=== PATIENT | female | born 1975 | race Caucasian/White ===

== ENCOUNTER 2016-11-24 06:26 | Inpatient (IN) | payer OTHER ==
[~2016-11-24] VITALS: Ht 165.1 cm; Wt 65.3 kg
[2016-11-24 07:20] VITALS: BP 116/73
[2016-11-24] MEDS ORDERED: PREN-134 PO (07:22)
[2016-11-24] MEDS ORDERED: RINGERS SOLUTION,LACTATED 1,000 ML IV ONE (10:11)
[2016-11-24] MEDS ORDERED: METOCLOPRAMIDE HCL 5 MG/ML 2 ML VIAL IVP ONE (10:15)
[2016-11-24] MEDS ORDERED: CITRIC ACID/SODIUM CITRATE 30 ML SOLUTION UDCUP PO ONE (10:15)
[2016-11-24 10:41] LABS: BASOPHILS % (AUTO) 1.2 % (0.0-2.0); EOSINOPHILS % (AUTO) 0.1 % (1.0-6.0); HEMATOCRIT 37.1 % (36-46); HEMOGLOBIN 12.7 g/dL (12.0-16.0); LYMPHOCYTES % (AUTO) 18.9 % (22.0-44.0); MEAN CORPUSCULAR HEMOGLOBIN 29.6 pg (26.0-34.0); MEAN CORPUSCULAR HGB CONC 34.1 G/dL (31.0-37.0); MEAN CORPUSCULAR VOLUME 87 fL (80-100); MONOCYTES # (AUTO) 0.7 K/uL (0.1-1.0); MONOCYTES % (AUTO) 6.3 % (2.0-9.0); NEUTROPHILS # (AUTO) 7.6 K/uL (1.8-7.7); NEUTROPHILS % (AUTO) 73.5 % (40.0-70.0); RED BLOOD CELL COUNT(AUTO) 4.29 MIL/uL (4.00-5.20); RED CELL DISTRIBUTION WIDTH 16.4 % (11.5-14.5); WHITE BLOOD COUNT (AUTO) 10.4 K/uL (4.5-11.0)
[2016-11-24] MEDS ORDERED: CeFAZolin 2 GM/DEXTROSE 50 ML IV ONE (12:11)
[2016-11-24] MEDS ORDERED: MORPHINE SULFATE/PF 1 MG/ML 10 ML AMP ONE (12:12)
[2016-11-24] MEDS ORDERED: FentaNYL CITRATE-PF 100 MCG/2 ML VIAL ONE (12:12)
[2016-11-24] MEDS ORDERED: MEPERIDINE-PF 25 MG/ML SYRINGE IVP PRN (13:30)
[2016-11-24] MEDS ORDERED: PROMETHAZINE HCL 12.5 MG in SODIUM CHLORIDE 0.9% 50 ML IV PRN (13:30)
[2016-11-24] MEDS ORDERED: FentaNYL CITRATE-PF 100 MCG/2 ML VIAL IVP PRN ×4 (13:30)
[2016-11-24] MEDS ORDERED: NALBUPHINE HCL 10 MG/ML VIAL IVP PRN ×3 (13:30)
[2016-11-24] MEDS ORDERED: NALOXONE HCL 0.4 MG/ML VIAL IVP PRN (13:30)
[2016-11-24] MEDS ORDERED: DEXAMETHASONE SOD PHOS 4 MG/ML VIAL IVP PRN (13:30)
[2016-11-24] MEDS ORDERED: ONDANSETRON HCL 4 MG/2 ML VIAL IVP PRN ×2 (13:30)
[2016-11-24] MEDS ORDERED: DiphenhydrAMINE HCL 50 MG/ML VIAL IVP PRN ×2 (13:30)
[2016-11-24] MEDS ORDERED: DEXTROSE 5%-0.45% SODIUM CHL 1,000 ML IV ONE (13:41)
[2016-11-24] MEDS ORDERED: ACETAMINOPHEN/CODEINE 300-30 MG TABLET PO PRN ×2 (13:45)
[2016-11-24] MEDS ORDERED: LANOLIN 7 GM OINTMENT TP PRN (13:45)
[2016-11-24] MEDS: DEXTROSE 5%-0.45% SODIUM CHL 1,000 ML IV SCH ×3 (13:48→22:14)
[2016-11-24] MEDS ORDERED: OXYGEN THERAPY IH SCH ×4 (20:00)
[2016-11-24] MEDS ORDERED: 0.9% SODIUM CHLORIDE 10 ML VIAL IVP ONE (23:52)
[2016-11-24] MEDS ORDERED: ONDANSETRON HCL 4 MG/2 ML VIAL IVP ONE (23:52)
[2016-11-24] MEDS ORDERED: KETOROLAC TROMETHAMINE 60 MG/2 ML VIAL IM ONE (23:52)
[2016-11-24] MEDS ORDERED: PHENYLEPHRINE HCL 10 MG/ML VIAL IVP ONE (23:52)
[2016-11-24] MEDS ORDERED: OXYTOCIN 10 UNITS/ML VIAL IM ONE (23:52)
[2016-11-25] MEDS: DEXTROSE 5%-0.45% SODIUM CHL 1,000 ML IV SCH (02:33)
[2016-11-25] MEDS: IBUPROFEN 800 MG TABLET PO SCH ×3 (06:28→21:06)
[2016-11-25] MEDS: MAGNESIUM HYDROXIDE SUSPENSION 30 ML UDCUP PO SCH (09:00)
[2016-11-26] MEDS: IBUPROFEN 800 MG TABLET PO SCH ×4 (03:05→21:02)
[2016-11-26] MEDS: MAGNESIUM HYDROXIDE SUSPENSION 30 ML UDCUP PO SCH ×2 (09:19→21:00)
[2016-11-27] MEDS: IBUPROFEN 800 MG TABLET PO SCH ×2 (02:31→08:18)
[2016-11-27 08:22] LABS: BASOPHILS % (AUTO) 0.1 % (0.0-2.0); EOSINOPHILS % (AUTO) 0 % (1.0-6.0); HEMATOCRIT 34.1 % (36-46); HEMOGLOBIN 11.6 g/dL (12.0-16.0); LYMPHOCYTES # (AUTO) 1.9 K/uL (1.0-4.8); LYMPHOCYTES % (AUTO) 12.6 % (22.0-44.0); MEAN CORPUSCULAR HEMOGLOBIN 29.8 pg (26.0-34.0); MEAN CORPUSCULAR HGB CONC 33.9 G/dL (31.0-37.0); MEAN CORPUSCULAR VOLUME 88 fL (80-100); MONOCYTES # (AUTO) 0.4 K/uL (0.1-1.0); MONOCYTES % (AUTO) 2.9 % (2.0-9.0); NEUTROPHILS # (AUTO) 12.9 K/uL (1.8-7.7); NEUTROPHILS % (AUTO) 84.4 % (40.0-70.0); RED BLOOD CELL COUNT(AUTO) 3.88 MIL/uL (4.00-5.20); RED CELL DISTRIBUTION WIDTH 17.2 % (11.5-14.5); WHITE BLOOD COUNT (AUTO) 15.3 K/uL (4.5-11.0)
[2016-11-27] MEDS ORDERED: AMMONIA 1 EA AMP IH ONE (08:41)
[2016-11-27] MEDS ORDERED: DSS100 PO (10:07)
[2016-11-27] MEDS ORDERED: IBUP-1547 PO (10:07)
[2016-11-27] MEDS ORDERED: ACET1TAB12 PO (10:07)
[2016-11-27] MEDS ORDERED: FERR-89 PO ×2 (10:31→10:33)
[2016-11-27 12:17] VITALS: BP 127/69
== END 2016-11-27 13:05 | disposition home or self-care (01) | DRG 766 ==
LOC: OBSVTOIN 06:26 → 4S 06:26 → NSY 17:20 → 4S 17:20
PROVIDERS: ADMIT Obstetrics & Gynecology; ATTEND Obstetrics & Gynecology
PROC: 10D00Z1 Extraction of Products of Conception, Low, Open Approach (ICD-10-PCS; principal; 2016-11-24)
DX: O75.89 Other specified complications of labor and delivery (principal); O09.513 Supervision of elderly primigravida, third trimester; Z3A.38 38 weeks gestation of pregnancy; Z37.0 Single live birth
CPT/HCPCS: 86850; 86900; 86901; 87081; J0690; J1885; J2370; J2405; J2590; J2765; J3010